=== PATIENT | male | born 1935 | race Caucasian/White ===

== ENCOUNTER 2019-05-15 13:42 | Outpatient (CLI) | payer OTHER | END 2019-05-15 17:00 | disposition home or self-care (01) | LOC: MRI 13:42 | DX: M54.17 Radiculopathy, lumbosacral region (principal) | CPT/HCPCS: 72148 ==

== ENCOUNTER 2019-05-25 09:29 | Outpatient (CLI) | payer OTHER | END 2019-05-25 11:49 | disposition home or self-care (01) | LOC: MRI 09:29 | DX: M48.061 Spinal stenosis, lumbar region without neurogenic claudication (principal); M48.02 Spinal stenosis, cervical region | CPT/HCPCS: 72141 ==